=== PATIENT | female | born 1975 | race Caucasian/White ===

== ENCOUNTER 2025-04-05 10:58 | Emergency (ER) | payer BC ==
[~2025-04-05] VITALS: Ht 167.6 cm; Wt 72.6 kg
[2025-04-05 11:07] VITALS: BP 122/59; TEMP 98.2
[2025-04-05] MEDS ORDERED: CLOT15CR35 TP (11:12)
[2025-04-05] MEDS ORDERED: CLOT30SO2 TP (11:22)
[2025-04-05 11:24] VITALS: O2SAT 99
== END 2025-04-05 11:24 | disposition home or self-care (01) ==
LOC: ER 11:07
DX: B35.4 Tinea corporis (principal); F12.90 Cannabis use, unspecified, uncomplicated; J45.909 Unspecified asthma, uncomplicated; K21.9 Gastro-esophageal reflux disease without esophagitis; F32.A Depression, unspecified